=== PATIENT | male | born 1945 | race Caucasian/White ===

== ENCOUNTER 2022-06-25 13:55 | Emergency (ER) | payer MEDICARE, SELFPAY ==
--- NOTE | 2022-06-25 13:58 | ED.URI ---
HPI - URI/Sore Throat General Chief Complaint: Upper Respiratory Infection Stated Complaint: sinus congestion Time Seen by Provider: 06/25/22 13:58 Source: patient and RN notes reviewed History of Present Illness HPI Narrative: Patient is a 76-year-old male who presents the urgent care with complaints of sinus congestion for approximately 1 week. Patient states that he typically is treated by his primary care doctor with [id number] . Patient denies of any fevers, shortness of breath, sore throat. Denies of any ill exposures. States that he took a negative COVID test on Friday. Patient has not done anything for his symptoms [id number]. States that it is really bad, waking him up in the middle of the night, and in the morning. However patient states that once he blows out all the gunk his symptoms improved throughout the day. Patient states that he is gotten a little hoarse the last couple days from the drainage at night. No other acute complaints. No acute distress noted. Patient aware of the plan of care. Some parts of this dictation were generated by voice recognition software and may contain typographical and/or grammatical inaccuracies. Related Data Home Medications Medication Instructions Recorded Confirmed amlodipine 5 mg-benazepril 10 mg cap 06/25/22 capsule atorvastatin 10 mg tablet mg 06/25/22 Allergies Allergy/AdvReac Type Severity Reaction Status Date / Time No Known Allergies Allergy Verified 06/25/22 14:02 Review of Systems Review of Systems: CONSTITUTIONAL: Denies fever, chills, or sweats. EYES: Denies visual changes, redness, or discharge. ENT: Reports of intermittent sinus congestion/pressure and rhinorrhea CARDIOVASCULAR: Denies chest pain, palpitations, or edema. RESPIRATORY: Denies cough or dyspnea. GASTROINTESTINAL: Denies abdominal pain, nausea, vomiting, or diarrhea. GENITOURINARY: Denies dysuria or hematuria. SKIN: Denies rash or itching. MUSCULOSKELETAL: Denies back pain, joint pain, or myalgia. NEUROLOGIC: Denies headache, numbness, or weakness. All other systems reviewed are negative, except as documented in HPI. PMFSH Comments At the time of my signature, I reviewed and agree with the nursing past medical, surgical, social, and family history. There is no relevant family history pertinent to the patient complaint. Exam Narrative: GENERAL: This is a well-nourished, well-developed patient, in no apparent distress. HEAD: normocephalic, atraumatic. Frontal sinus tenderness EYES: PERRL. Sclera clear/white. Vision is grossly intact. EARS: External ears normal, auditory canals clear and without drainage, TMs normal without perforation. Hearing grossly intact. NOSE: External nose normal with no obvious nasal discharge. Mild bilateral erythemic nares with clear to yellow rhinorrhea THROAT: Mucous membranes moist, posterior pharynx clear. Moderate postnasal drainage NECK: Neck supple, non-tender without lymphadenopathy CARDIOVASCULAR: Regular rate and rhythm RESPIRATORY: Clear to auscultation. Breath sounds equal bilaterally. SKIN: warm, intact with no suspicious lesions or rash, good texture and turgor. NEURO: awake, alert, and oriented to person, place and time. There were no obvious focal neurologic abnormalities. EXTREMITIES: No clubbing, cyanosis, or edema. Course Course Level of Care: Express Care Visit Vital Signs Vital signs: Vital Signs Temperature 98.3 F 06/25/22 14:05 Pulse Rate 69 06/25/22 14:05 Respiratory Rate 16 06/25/22 14:05 Blood Pressure 155/81 H 06/25/22 14:05 Pulse Oximetry 99 06/25/22 14:05 Temperature 98.3 F 06/25/22 14:05 Pulse Rate 69 06/25/22 14:05 Respiratory Rate 16 06/25/22 14:05 Blood Pressure 155/81 H 06/25/22 14:05 Pulse Oximetry 99 06/25/22 14:05 Reviewed-patient is informed that they may have pre-hypertension or hypertension based on a blood pressure reading in the department. I recommend the patient kenney
[2022-06-25 14:05] VITALS: BP 155/81; PULSE 69; RESP 16; TEMP 36.8; O2SAT 99
== END 2022-06-25 14:21 | disposition home or self-care (01) ==
PROVIDERS: Emergency Provider Nurse Practitioner Family; PCP Family Medicine
DX: J32.9 Chronic sinusitis, unspecified (principal); E78.00 Pure hypercholesterolemia, unspecified; I10 Essential (primary) hypertension
CPT/HCPCS: 99213; G0463

== ENCOUNTER 2022-10-29 09:13 | Emergency (ER) | payer MEDICARE, SELFPAY ==
--- NOTE | 2022-10-29 09:21 | ED.URI ---
HPI - URI/Sore Throat General Chief Complaint: Upper Respiratory Infection Stated Complaint: COUGH Time Seen by Provider: 10/29/22 09:22 Source: patient Mode of arrival: ambulatory Limitations: no limitations History of Present Illness HPI Narrative: 77-year-old male presents with complaint of cough, scratchy throat, postnasal drainage that started 2 days ago. Reports he did a home COVID test that was negative. Afebrile. Denies shortness of breath. Patient states that snowstorm is coming and he wanted to get started on it antibiotic before symptoms got worse. Reports history of pneumonia. Not taking any [id number] medications to treat his symptoms. All Systems reviewed and negative except as noted above. Related Data Home Medications Medication Instructions Recorded Confirmed amlodipine 5 mg-benazepril 10 mg 1 cap PO DAILY 06/25/22 10/29/22 capsule atorvastatin 10 mg tablet 10 mg PO DAILY 06/25/22 Allergies Allergy/AdvReac Type Severity Reaction Status Date / Time No Known Allergies Allergy Verified 06/25/22 14:02 Review of Systems Review of Systems: CONSTITUTIONAL: Denies fever, chills, or sweats. EYES: Denies visual changes, redness, or discharge. ENT: Denies rhinorrhea, congestion. Reports sore throat. Denies otalgia. CARDIOVASCULAR: Denies chest pain, palpitations, or edema. RESPIRATORY: Reports cough. Denies dyspnea. GASTROINTESTINAL: Denies abdominal pain, nausea, vomiting, or diarrhea. GENITOURINARY: Denies dysuria or hematuria. SKIN: Denies rash or itching. MUSCULOSKELETAL: Denies back pain, joint pain, or myalgia. NEUROLOGIC: Denies headache, numbness, or weakness. PSYCHIATRIC: Denies anxiety or depression. All other systems reviewed are negative, except as documented in HPI. PMFSH Comments At time of signature, agree with nursing past medical, surgical, social and family history. There is no relevant family history pertinent to the presenting complaint. Exam Narrative: GENERAL: This is a well-nourished, well-developed patient, in no apparent distress. HEAD: normocephalic, atraumatic. EYES: PERRL. Sclera clear/white. Vision is grossly intact. EARS: External ears normal, auditory canals clear and without drainage, TMs normal without perforation. Hearing grossly intact. NOSE: External nose normal with no obvious nasal discharge, nares without redness, no rhinorrhea. THROAT: Mucous membranes moist, clear postnasal drainage.. NECK: Neck supple, non-tender without lymphadenopathy, masses or thyromegaly. CARDIOVASCULAR: Regular rate and rhythm without murmurs, gallops, or rubs. RESPIRATORY: Decreased in lower lobes. Breath sounds equal bilaterally. No wheezes, rales, or rhonchi. SKIN: warm, Dry, intact with no suspicious lesions or rash, good texture and turgor. NEURO: awake, alert, and oriented to person, place and time. There were no obvious focal neurologic abnormalities. EXTREMITIES: No joint tenderness, effusion, or edema noted. Course Course Level of Care: Express Care Visit Vital Signs Vital signs: Vital Signs Temperature 37.4 C 10/29/22 09:22 Pulse Rate 82 10/29/22 09:22 Respiratory Rate 16 10/29/22 09:22 Blood Pressure 137/75 10/29/22 09:22 Pulse Oximetry 96 10/29/22 09:22 Oxygen Delivery Room Air 10/29/22 09:22 Temperature 37.4 C 10/29/22 09:22 Pulse Rate 82 10/29/22 09:22 Respiratory Rate 16 10/29/22 09:22 Blood Pressure 137/75 10/29/22 09:22 Pulse Oximetry 96 10/29/22 09:22 Oxygen Delivery Room Air 10/29/22 09:22 Reviewed MDM - URI/Sore Throat MDM Narrative Medical decision making narrative: No respiratory distress noted. Patient is afebrile. Will treat with antibiotic due to history of pneumonia, decreased lung sounds in lower lung jack. There is ice no strengthening and patient is worried he is going to be stuck at and unable to get to his doctor if his symptoms become worse. Patient is aware of diagnosis, un
[2022-10-29 09:22] VITALS: BP 137/75; PULSE 82; RESP 16; TEMP 37.4; O2SAT 96
== END 2022-10-29 09:34 | disposition home or self-care (01) ==
PROVIDERS: Emergency Provider Nurse Practitioner Family; PCP Family Medicine
DX: J06.9 Acute upper respiratory infection, unspecified (principal); E78.00 Pure hypercholesterolemia, unspecified; I10 Essential (primary) hypertension
CPT/HCPCS: 99213; G0463

== ENCOUNTER 2022-11-12 16:41 | Emergency (ER) | payer MEDICARE, SELFPAY ==
[2022-11-12 16:50] VITALS: BP 139/92; PULSE 70; RESP 16; TEMP 36.9; O2SAT 99
--- NOTE | 2022-11-12 16:50 | ED.SKABFB ---
HPI - Skin/Abscess/Foreign Bdy General Chief complaint: Dental/Oral Stated complaint: MOUTH INJURY Time Seen by Provider: 11/12/22 16:50 Source: patient Mode of arrival: ambulatory Limitations: no limitations History of Present Illness HPI narrative: [age] year Old male presents with laceration just below his nose. Patient reports that he was using pulse saw today to trim tree limbs. States that he set the pulse off against a lamp and fell backwards and hit him in the face. Bleeding controlled on arrival. No other complaints today. Denies hitting head, no LOC. All systems reviewed and negative except as noted above. Related Data Home Medications Medication Instructions Recorded Confirmed amlodipine 5 mg-benazepril 10 mg 1 cap PO DAILY 06/25/22 10/29/22 capsule atorvastatin 10 mg tablet 10 mg PO DAILY 06/25/22 Allergies Allergy/AdvReac Type Severity Reaction Status Date / Time No Known Allergies Allergy Verified 06/25/22 14:02 Review of Systems Review of Systems: CONSTITUTIONAL: Denies fever, chills, or sweats. EYES: Denies visual changes, redness, or discharge. ENT: Denies rhinorrhea, congestion, sore throat, or otalgia. CARDIOVASCULAR: Denies chest pain, palpitations, or edema. RESPIRATORY: Denies cough or dyspnea. GASTROINTESTINAL: Denies abdominal pain, nausea, vomiting, or diarrhea. GENITOURINARY: Denies dysuria or hematuria. SKIN: Reports facial laceration MUSCULOSKELETAL: Denies back pain, joint pain, or myalgia. NEUROLOGIC: Denies headache, numbness, or weakness. PSYCHIATRIC: Denies anxiety or depression. All other systems reviewed are negative, except as documented in HPI. PMFSH Comments At time of signature, agree with nursing past medical, surgical, social and family history. There is no relevant family history pertinent to the presenting complaint. Exam Narrative: GENERAL: This is a well-nourished, well-developed patient, in no apparent distress. HEAD: normocephalic, atraumatic. EYES: PERRL. Sclera clear/white. Vision is grossly intact. EARS: External ears normal NOSE: External nose normal NECK: Neck supple, non-tender without lymphadenopathy, masses or thyromegaly. CARDIOVASCULAR: Regular rate and rhythm without murmurs, gallops, or rubs. RESPIRATORY: Clear to auscultation. Breath sounds equal bilaterally. No wheezes, rales, or rhonchi. SKIN: warm, Dry, with no suspicious lesions or rash, good texture and turgor. approx. 1 cm irregular laceration just below nose. bleeding controlled. small area of laceration is avulsed. there is also a puncture through and through to oral mucosa. scant blood noted inside mouth. NEURO: awake, alert, and oriented to person, place and time. There were no obvious focal neurologic abnormalities. EXTREMITIES: No joint tenderness, effusion, or edema noted. HENMT: Head images: 1. 1cm irregular laceration with some avulsion of skin Course Course Level of Care: Express Care Visit Vital Signs Vital signs: Reviewed Procedures Laceration Laceration 1: Date: 11/12/22 Time: 17:10 Site: face Size (cm): 1 Description: irregular Depth: simple, single layer Local Anesthetic: lidocaine 1% Amount of anesthesia used (mL): 1 Pre-repair: wound explored and irrigated ====== Skin Level ====== Skin layer closed with: vicryl Size (cm): 5-0 Number of sutures: 5 Technique: simple, interrupted ====== Subcutaneous Layer ====== ====== Muscle Layer ====== ====== Tendon Layer ====== MDM - Skin/Abscess/Foreign Bdy MDM Narrative Medical decision making narrative: Patient is aware of diagnosis, understands and agrees to treatment plan. Anticipatory guidance given. Patient agrees to follow-up as directed and is aware of reasons to seek care at the emergency department. Portions of this record may have been created with voice recognition software
[2022-11-12] MEDS: TETANUS,DIPHTHERIA,AC PERTUSSIS ADULT (0.5 ML) BOOSTRIX IM (17:10)
== END 2022-11-12 17:20 | disposition home or self-care (01) ==
PROVIDERS: Emergency Provider Nurse Practitioner Family; PCP Family Medicine
DX: S01.81XA Laceration without foreign body of other part of head, initial encounter (principal); W20.8XXA Other cause of strike by thrown, projected or falling object, initial encounter; Z23 Encounter for immunization; E78.00 Pure hypercholesterolemia, unspecified; I10 Essential (primary) hypertension
CPT/HCPCS: 12011; 90471; 90715; 99213; G0463

== ENCOUNTER 2023-07-25 14:25 | Emergency (ER) | payer MEDICARE, SELFPAY ==
--- NOTE | ~2023-07-25 | XR_ITS ---
XR finger 3rd RT min 2V DATE: 07/25/2023 14:48 INDICATION: Shot right third finger in door. Distal pain and swelling. TECHNIQUE: 4 views COMPARISON: None FINDINGS: There is diffuse osteopenia. There is polyarticular osteoarthritis. No fracture or disloc ation, periosteal reaction or bone destruction. IMPRESSION: No fracture or dislocation Polyarticular osteoarthritis Osteopenia Reviewed, dictated and finalized at location B.
[2023-07-25 14:35] VITALS: BP 144/78; PULSE 75; RESP 16; TEMP 36.9; O2SAT 98
--- NOTE | 2023-07-25 14:43 | ED.UPPEXIN ---
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 States he smashed the finger in a door when closing it. Endorses minimal pain. Bruising to the finger pad and the nail. Related Data Home Medications Medication Instructions Recorded Confirmed amlodipine 5 mg-benazepril 10 mg 1 cap PO DAILY 06/25/22 07/25/23 capsule atorvastatin 10 mg tablet 10 mg PO DAILY 06/25/22 07/25/23 Allergies Allergy/AdvReac Type Severity Reaction Status Date / Time No Known Allergies Allergy Verified 06/25/22 14:02 Review of Systems Review of Systems: CONSTITUTIONAL: Denies body aches, fever, chills EYES: Denies visual changes ENT: Denies rhinorrhea, congestion CARDIOVASCULAR: Denies chest pain, palpitations, or edema. RESPIRATORY: Denies cough or dyspnea. GASTROINTESTINAL: Denies abdominal pain, nausea, vomiting, or diarrhea. SKIN: Denies rash, itching, or wounds. MUSCULOSKELETAL: Reports finger pain Denies back pain, joint pain, or myalgia. NEUROLOGIC: Denies headache, numbness, tingling, or weakness. PSYCH: Denies depression or anxiety. All systems reviewed & are unremarkable except as noted in HPI and below PMFSH Past Medical History Medical History (Updated 07/25/23 @ 15:10 by Suly Valdez, AKI) Hypertension Comments At time of signature, I have reviewed and agree with nursing past medical, surgical, social and family history unless otherwise noted. Please see nursing chart for further information. There is no relevant family history pertinent to the presenting complaint Exam Narrative: GENERAL: Well-appearing, and in no acute distress. HEAD: Normocephalic, atraumatic. EYES: conjunctivae clear CHEST: Speaks in full sentences. No respiratory distress. HEART: Regular rate and rhythm. Normal and equal peripheral pulses. EXTREMITIES: Right 3rd digit distal phalanx with mild swelling and bruising to the palmar surface, subungual hematoma <50 % of the nail bed. Superficial laceration to the cuticle. Finger has normal strength and sensation, normal range of motion. No obvious deformity; pulse palpable and equal bilaterally, skin warm, dry, pink. Capillary refill less than 3 seconds. SKIN: Warm, dry, no rash. NEURO: Alert and oriented x3. PSYCH: Normal mood and affect Course Course Emergency Course: Patient is aware of diagnosis, understands and agrees to treatment plan. Anticipatory guidance given. Patient agrees to follow-up as directed and is aware of reasons to seek care at the emergency department. Portions of this record may have been created with voice recognition software Level of Care: Express Care Visit Vital Signs Vital signs: Vital Signs Temperature 98.5 F 07/25/23 14:35 Pulse Rate 75 07/25/23 14:35 Respiratory Rate 16 07/25/23 14:35 Blood Pressure 144/78 H 07/25/23 14:35 Pulse Oximetry 98 07/25/23 14:35 Temperature 98.5 F 07/25/23 14:35 Pulse Rate 75 07/25/23 14:35 Respiratory Rate 16 07/25/23 14:35 Blood Pressure 144/78 H 07/25/23 14:35 Pulse Oximetry 98 07/25/23 14:35 Reviewed MDM - Extremity Injury (Upper) MDM Narrative Medical decision making narrative: Discussed physical exam findings and reviewed xray. subungual hematoma less than 50% nail bed, pain is minimal, deferred cautery. Site cleansed. Advised supportive measures and signs/symptoms to go to the ER. Pt is appropriate for outpt treatment and f/u. Differential Diagnosis Differential diagnosis: Likely other (finger fracture, sprain, dislocation, contusion, subungual hematoma) Imaging Data Radiologist's impression: Patient: Colton Singh : 1945 MR#: [id number] Age/Sex: 78 / M Acct
== END 2023-07-25 15:17 | disposition home or self-care (01) ==
PROVIDERS: Emergency Provider Nurse Practitioner Family; PCP Family Medicine
DX: S60.031A Contusion of right middle finger without damage to nail, initial encounter (principal); W23.0XXA Caught, crushed, jammed, or pinched between moving objects, initial encounter; I10 Essential (primary) hypertension
CPT/HCPCS: 73140; 99213; G0463

== ENCOUNTER 2025-08-23 14:50 | Outpatient (CLI) | payer MEDICARE, SELFPAY ==
--- NOTE | ~2025-08-23 | XR_ITS ---
XR lumbar spine 2-3V Indication: pain in right hip and shoulder, PAIN DOWN RIGHT LEG Comparison: None Findings: Grade 1 anterolisthesis of L4 on L5, no fracture. Grade 1 anterolisthesis of L5 on S1. Severe loss of disc height throughout. Soft tissues unremarkable Impression: No acute abnormality. Reviewed, dictated and finalized at location P. RTING OPERATOR Impression: No acute abnormality.
--- NOTE | ~2025-08-23 | XR_ITS ---
EXAMINATION: XR shoulder RT min 2V, 08/23/2025 15:10 APPLICATION SUPPORT HISTORY: pain in right hip and shoulder COMPARISON: No comparisons available. Findings: No acute fracture or malalignment. Moderate degenerative changes Soft tissues unremarkable. Impression: No acute fracture or malalignment. Reviewed, dictated and finalized at location P. ICATION SUPPORT Impression: No acute fracture or malalignment.
--- NOTE | ~2025-08-23 | XR_ITS ---
EXAMINATION: XR hip RT min 2V, 08/23/2025 15:10 MERGERS AND ACQUISITIONS CONSULTANT HISTORY: RIGHT HIP PAIN COMPARISON: No comparisons available. Findings: No acute fracture or malalignment. Severe degenerative changes Soft tissues unremarkable. Impression: No acute fracture or malalignment. Reviewed, dictated and finalized at location P. ERS AND ACQUISITIONS CONSULTANT Impression: No acute fracture or malalignment.
== END 2025-08-23 14:51 | disposition home or self-care (01) ==
PROVIDERS: PCP Family Medicine; Visit Provider Family Medicine
DX: M25.511 Pain in right shoulder (principal); G89.29 Other chronic pain; M25.551 Pain in right hip
CPT/HCPCS: 72100; 73030; 73502